=== PATIENT | female | born 1980 | race Caucasian/White ===

== ENCOUNTER → 2021-03-12 | Emergency (ER) | payer MEDICAID ==
[~2021-03-12] MED LIST: FLUO15CR TP; HYDR15OI TP; HYDR50CA PO
== END | disposition left against medical advice (07) ==
LOC: ER 14:04
DX: M79.643 Pain in unspecified hand (principal); Z53.21 Procedure and treatment not carried out due to patient leaving prior to being seen by health care provider